=== PATIENT | female | born 2000 | race Caucasian/White ===

== ENCOUNTER 2022-04-29 21:56 | Emergency (ER) | payer MEDICAID ==
[~2022-04-29] VITALS: Ht 167.6 cm; Wt 59.1 kg
[2022-04-29] MEDS ORDERED: DIVA-80 PO (22:02)
[2022-04-29 22:15] VITALS: BP 124/89
[2022-04-29] MEDS ORDERED: IBUPROFEN 600 MG TABLET PO ONE (22:30)
== END 2022-04-29 22:56 | disposition home or self-care (01) ==
LOC: EMS 22:01
DX: S60.221A Contusion of right hand, initial encounter (principal); F12.90 Cannabis use, unspecified, uncomplicated; Z79.899 Other long term (current) drug therapy; X58.XXXA Exposure to other specified factors, initial encounter; Y93.89 Activity, other specified; Y92.89 Other specified places as the place of occurrence of the external cause; Y99.8 Other external cause status
CPT/HCPCS: 99283